=== PATIENT | female | born 1945 | race Caucasian/White ===

== ENCOUNTER 2016-11-11 22:18 | Observation (INO) | payer MEDICARE ==
[2016-11-11 23:39] LABS: Hematocrit 39 % (35-47); Hemoglobin 12.9 g/dl (12.0-16.0); Mean Corpuscular HGB Conc 33 g/dl (31-36); Mean Corpuscular Hemoglobin 30 pg (27-31); Mean Corpuscular Volume 91 fL (80-97); Mean Platelet Volume 8 um3 (7.4-10.4); Red Blood Count 4.31 10^6/ul (4.0-5.4); Red Cell Distribution Width 14 % (10.5-15); White Blood Count 4.5 10^3/ul (3.5-10.8)
[2016-11-11 23:42] LABS: Albumin 4.1 g/dL (3.2-5.2); BUN/Creatinine Ratio 17.5 (8-20); Calcium 9.4 mg/dL (8.6-10.3); EGFR African American 90.7 (>60); EGFR Non-African American 70.5 (>60); Globulin 2.7 g/dL (2-4); Potassium 3.6 mmol/L (3.5-5.0); Total Bilirubin 0.5 mg/dL (0.2-1.0); Total Protein 6.8 g/dL (6.4-8.9)
[2016-11-11 23:49] LABS: Urine Bilirubin Negative (Negative); Urine Glucose Negative (Negative); Urine Nitrite Negative (Negative)
--- NOTE | 2016-11-12 01:35 | ED ---
Kiko Bond Rebecca, scribed for Gayle Diallo MD on 11/11/16 at 2332 . Hypertension - HPI Summary HPI Summary: Pt is a 70 y/o F who presents to ED c/o diffuse right-sided numbness and tingling secondary to hypertension. Sx began suddenly at 1900 and were constant until resolution at 2300. Numbness was located on the R-side of the face and RLE. States that it "felt like something was crawling on my right leg" and that "my face felt like something cold was running down it." Sx aggravated by nothing , alleviated by spontaneous resolution. Denies unsteady gait, difficulty finding words and slurred speech. Takes Lopressor and Lipitor daily. Reports taking green vibrance and kratom since Monday (4 days ago) to promote weight loss. Reports a similar episode of R-sided facial numbness 2 years ago with a diagnosis of Lyme Disease. Confirms she has been [place] and doing yard work recently. Did not take ASA today. PMHx HTN, HLD. No PMHx DM, CVA, TIA, CAD. No FHx MT <55 y/o. - History of Current Complaint Chief Complaint: EDHypertension Stated Complaint: GENERAL ILLNESS Time Seen by Provider: 11/11/16 23:00 Hx Obtained From: Patient Onset/Duration: Started Hours Ago - 1900, Resolved - at 2300 Timing: Constant Aggravating Factor(s): Nothing Alleviating Factor(s): Other - Spontaneous resolution Associated Signs & Symptoms: Numbness - R facial, RLE, Tingling - R-facial, RLE , Other: - Denies unsteady gait, difficulty finding words or slurred speech - Allergies/Home Medications Allergies/Adverse Reactions: Allergies Allergy/AdvReac Type Severity Reaction Status Date / Time Ibuprofen Allergy Intermediate Swelling Verified 12/22/12 12:40 PMH/Surg Hx/FS Hx/Imm Hx Endocrine/Hematology History: Reports: Hx Thyroid Disease Denies: Hx Diabetes Cardiovascular History: Reports: Hx Angina - non-cardiac per pt., Hx Hypercholesterolemia, Hx Hypertension Denies: Hx Coronary Artery Disease, Hx Myocardial Infarction, Hx Valvular Heart Disease Respiratory History: Reports: Hx Pneumonia, Other Respiratory Problems/ Disorders - pleurisy Denies: Hx Asthma, Hx Chronic Obstructive Pulmonary Disease (COPD) GI History: Reports: Hx Gastroesophageal Reflux Disease, Other GI Disorders - rectiseal, 2011 Musculoskeletal History: Reports: Hx Arthritis Neurological History: Denies: Hx CVA, Hx Transient Ischemic Attacks (TIA) - Cancer History Hx Chemotherapy: No Hx Radiation Therapy: No - Surgical History Surgery Procedure, Year, and Place: lumpectomy Infectious Disease History: No Infectious Disease History: Denies: Traveled Outside the [place] in Last 30 Days - Family History Known Family History: Negative: Cardiac Disease - Social History Lives: Alone Alcohol Use: Occasionally Substance Use Type: Reports: None Smoking Status (MU): Never Smoked Tobacco Review of Systems Constitutional: Negative Eyes: Negative ENT: Negative Cardiovascular: Negative Respiratory: Negative Gastrointestinal: Negative Genitourinary: Negative Musculoskeletal: Negative Skin: Negative Neurological: Other - R facial and RLE tingling; Denies difficulty finding words or unsteady gait Positive: Numbness - R facial and RLE. Negative: Slurred Speech Psychological: Normal All Other Systems Reviewed And Are Negative: Yes Physical Exam - Summary Physical Exam Summary: General: Well appearing, no pain distress Skin: Warm, Skin Color Reflects Adequate Perfusion, Dry Eyes: EOMI, SHAYLEE ENT: Pharynx normal, TMs normal Neck: Supple, nontender Respiratory: CTA, breath sounds present, no rhonchi, no wheezes, no rales Cardiovascular: RRR, no murmur, no rub, no gallop Abdomen: Soft, nontender, Non-distended, no guarding, no rebound Bowel: Present Musculoskeletal: SERJIO, No edema Neuro: Sensory/motor intact, A&Ox3, CN intact 2-12 Psych: Affect/mood appropriate Triage Information Reviewed: Yes Vital Signs On Initial Exam: Initial Vitals Temp Pulse Resp BP Pulse Ox 98.7 F 76 18 187/89 98 11/11/16 22:25 11/11/16 22:25 11/11/16 22:25 11/11/16 22:25 11/11/16 22:25 Vital Signs Reviewed: Yes Diagnostics - Vital Signs Vital Signs Temp Pulse Resp BP Pulse Ox 11/11/16 23:00 70 20 157/92 98 11/11/16 22:58 69 98 11/11/16 22:56 173/93 11/11/16 22:52 99.2 F 70 18 173/93 96 11/11/16 22:25 98.7 F 76 18 187/89 98 - Laboratory Lab Results: Lab Results 11/11/16 11/11/16 11/11/16 Range/Units 22:58 22:59 22:59 WBC 4.5 (3.5-10.8) 10^3/ul RBC 4.31 (4.0-5.4) 10^6/ul Hgb 12.9 (12.0-16.0) g/dl Hct 39 (35-47) % MCV 91 (80-97) fL MCH 30 (27-31) pg MCHC 33 (31-36) g/dl RDW 14 (10.5-15) % Plt Count 167 (150-450) 10^3/ul MPV 8 (7.4-10.4) um3 Neut % (Auto) 49.5 (38-83) % Lymph % (Auto) 39.9 (25-47) % Towns % (Auto) 8.3 (1-9) % Eos % (Auto) 1.8 (0-6) % Baso % (Auto) 0.5 (0-2) % Absolute Neuts (auto) 2.2 (1.5-7.7) 10^3/ul Absolute Lymphs (auto) 1.8 (1.0-4.8) 10^3/ul Absolute Monos (auto) 0.4 (0-0.8) 10^3/ul Absolute Eos (auto) 0.1 (0-0.6) 10^3/ul Absolute Basos (auto) 0 (0-0.2) 10^3/ul Absolute Nucleated RBC 0 10^3/ul Nucleated RBC % 0.1 INR (Anticoag Therapy) 0.95 (0.89-1.11) Sodium (133-145) mmol/L Potassium (3.5-5.0) mmol/L Chloride (101-111) mmol/L Carbon Dioxide (22-32) mmol/L Anion Gap (2-11) mmol/L BUN (6-24) mg/dL Creatinine (0.51-0.95) mg/dL Est GFR ( Amer) (>60) Est GFR (Non-Af Amer) (>60) BUN/Creatinine Ratio (8-20) Glucose (70-100) mg/dL Lactic Acid (0.5-2.0) mmol/L Calcium (8.6-10.3) mg/dL Total Bilirubin (0.2-1.0) mg/dL AST (13-39) U/L ALT (7-52) U/L Alkaline Phosphatase (34-104) U/L Troponin I (<0.04) ng/mL Total Protein (6.4-8.9) g/dL Albumin (3.2-5.2) g/dL Globulin (2-4) g/dL Albumin/Globulin Ratio (1-3) Urine Color Straw Urine Appearance Clear Urine pH 6.0 (5-9) Ur Specific [place] 1.003 L (1.010-1.030) Urine Protein Negative (Negative) Urine Ketones Negative (Negative) Urine Blood Negative (Negative) Urine Nitrate Negative (Negative) Urine Bilirubin Negative (Negative) Urine Urobilinogen Negative (Negative) Ur Leukocyte Esterase Negative (Negative) Urine Glucose Negative (Negative) 11/11/16 11/11/16 Range/Units 22:59 22:59 WBC (3.5-10.8) 10^3/ul RBC (4.0-5.4) 10^6/ul Hgb (12.0-16.0) g/dl Hct (35-47) % MCV (80-97) fL MCH (27-31) pg MCHC (31-36) g/dl RDW (10.5-15) % Plt Count (150-450) 10^3/ul MPV (7.4-10.4) um3 Neut % (Auto) (38-83) % Lymph % (Auto) (25-47) % Towns % (Auto) (1-9) % Eos % (Auto) (0-6) % Baso % (Auto) (0-2) % Absolute Neuts (auto) (1.5-7.7) 10^3/ul Absolute Lymphs (auto) (1.0-4.8) 10^3/ul Absolute Monos (auto) (0-0.8) 10^3/ul Absolute Eos (auto) (0-0.6) 10^3/ul Absolute Basos (auto) (0-0.2) 10^3/ul Absolute Nucleated RBC 10^3/ul Nucleated RBC % INR (Anticoag Therapy) (0.89-1.11) Sodium 137 (133-145) mmol/L Potassium 3.6 (3.5-5.0) mmol/L Chloride 103 (101-111) mmol/L Carbon Dioxide 28 (22-32) mmol/L Anion Gap 6 (2-11) mmol/L BUN 14 (6-24) mg/dL Creatinine 0.80 (0.51-0.95) mg/dL Est GFR ( Amer) 90.7 (>60) Est GFR (Non-Af Amer) 70.5 (>60) BUN/Creatinine Ratio 17.5 (8-20) Glucose 113 H (70-100) mg/dL Lactic Acid 0.7 (0.5-2.0) mmol/L Calcium 9.4 (8.6-10.3) mg/dL Total Bilirubin 0.50 (0.2-1.0) mg/dL AST 22 (13-39) U/L ALT 17 (7-52) U/L Alkaline Phosphatase 67 (34-104) U/L Troponin I 0.00 (<0.04) ng/mL Total Protein 6.8 (6.4-8.9) g/dL Albumin 4.1 (3.2-5.2) g/dL Globulin 2.7 (2-4) g/dL Albumin/Globulin Ratio 1.5 (1-3) Urine Color Urine Appearance Urine pH (5-9) Ur Specific [place] (1.010-1.030) Urine Protein (Negative) Urine Ketones (Negative) Urine Blood (Negative) Urine Nitrate (Negative) Urine Bilirubin (Negative) Urine Urobilinogen (Negative) Ur Leukocyte Esterase (Negative) Urine Glucose (Negative) Result Diagrams: 11/11/16 22:59 11/11/16 22:59 Lab Statement: Any lab studies that have been ordered have been reviewed, and results considered in the medical decision making process. - CT Brain CT CT Interpretation Completed By: Radiologist - 1. Mild diffuse cerebral parenchymal volume loss without intracranial bleed, extra-axial fluid collection , mass defect, midline shift, hydrocephalus or acute territorial infarct. 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 Non-Paretic Hand: Both Correctly Best Gaze (Only Horizontal Eye Movement): Normal Visual Field Testing: No Visual Loss Facial Paresis-Pt to Smile & Close Eyes or Grimace Symmetry: Normal/Symmetrical Motor Function - Right Arm: No Drift-Holds 10 Seconds Motor Function - Left Arm: No Drift-Holds 10 Seconds Motor Function - Right Leg: No Drift-Holds 10 Seconds Motor Function - Left Leg: No Drift-Holds 10 Seconds Limb Ataxia-Must be out of Proportion to Weakness Present: Absent Sensory (Use Pinprick to Test Arms/Legs/Trunk/Face): Normal Best Language (Describe Picture, Name Items): No Aphasia Dysarthria (Read Several Words): Normal Extinction and Inattention: No Abnormality Total Score: 0 Hypertension Course/Dx - Course Course Of Treatment: 70 yo female with tia symptoms being admitted to hospitalist - Diagnoses Provider Diagnoses: TIA (transient ischemic attack) - Physician Notifications Discussed Care Of Patient With: Dr. Braswell, hospitalist, who accepts pt for admission. Time Discussed With Above Provider: 01:25 Discharge - Discharge Plan Condition: Good Disposition: ADMITTED TO [facility] Referrals: Damaso Hightower MD [Primary Care Provider] - The documentation as recorded by the Kiko polanco Rebecca accurately reflects the service I personally performed and the decisions made by me, Gayle Diallo MD.
[2016-11-12] MEDS ORDERED: Acetaminophen TAB* 325 MG PO PRN (02:34)
[2016-11-12] MEDS ORDERED: Ondansetron INJ* 2 MG/ML VIAL IV PRN (02:34)
[2016-11-12] MEDS ORDERED: CMCS: Melatonin (NF) 3 MG TAB PO PRN (02:34)
[2016-11-12] MEDS ORDERED: NS 0.9% 1000 ML* 1,000 ML IV SCH (02:45)
[2016-11-12] MEDS ORDERED: hydrALAZINE IV* 20 MG/ML VIAL IV PRN (02:56)
--- NOTE | 2016-11-12 02:56 | HP ---
H&P (Free Text) History and Physical: PCP: Karely Hightower MD Date/Time of Evaluation: 11/12/2016 CC: R-sided N/T HPI: Mrs Wallace is a 70YO female HX HTN who was at [facility] study this evening when she developed the rapid onset of abnormal sensation of the R face and R leg. It began as the feeling of water running over her R face which then evolved into N/T and spread to the RLE. This was associated with "foggy" vision , but no headache, weakness, slurred speech, or difficulty managing secretions. In total, these symptoms lasted ~3hours before gradually and spontaneously resolving. Upon my evaluation she denies any symptomotology and states she is at her baseline. She relates a similar episode 2-3 years ago in which the work up was negative. Vitals are hypertensive with systolics in the 150-180s, but otherwise stable. Lab values are essentially normal. ECG and CT brain WO are benign. PMedHx HTN HLD hypothyroidism GERD Ambulatory Orders Atorvastatin* [Lipitor 20 MG*] 20 mg PO 2100 12/22/12 Furosemide TAB* [Lasix TAB*] 40 mg PO DAILY 12/22/12 Levothyroxine TAB* [Synthroid TAB*] 50 mcg PO 0800 12/22/12 Metoprolol Tartrate TAB* [Lopressor TAB*] 100 mg PO DAILY 12/22/12 Protonix TAB (NF) 40 mg PO DAILY 11/12/16 Allergies Ibuprofen Allergy (Intermediate, Verified 12/22/12 12:40) Swelling PSurgHx tonsillectomy throat BX, benign R lumpectomy, benign L TKA SocHx: no tobacco or recreational drugs, minimal alcohol; full code status FamHx: Mother: breast CA & DM2; Father: AFIB; Brother: AFIB ROS: as above, otherwise reviewed and all were negative Constitutional: NAD, normally developed, obese white female vitals: Vital Signs Temp 37.3 C 11/11/16 22:52 Pulse 62 11/12/16 00:10 Resp 20 11/11/16 23:30 BP 172/91 11/11/16 23:30 Pulse Ox 100 11/12/16 00:10 Intake & Output 11/11/16 11/11/16 11/12/16 11:59 23:59 11:59 Weight 83.915 kg HEENM: atraumatic; sclera/conjunctiva: non-icteric/clear; hearing: clinically intact; oropharynx: clear, mucosa moist Neck: soft tissue: non-tender; thyroid: normal, no mass or tenderness Pulmonary: clear to auscultation bilaterally, good aeration, no accessory muscle use CV: RR/RR, normal S1S2, no carotid bruit, no jugular venous distention, 2+ B DP/ PT, no edema Abdominal: soft, non-distended, non-tender, no rebound/guarding/rigidity, normoactive bowel sounds, no hepatosplenomegaly or masses, no costovertebral angle tenderness Musculoskeletal: general: grossly intact; gait: stable Integumental: normal appearance and texture of exposed skin Neurological cranial nerves II: visual sarabia intact III/IV/: symmetric light reflex, EOMI/PERRLA, intact convergence & accommodation V: intact facial sensation & mastication VII: intact facial symmetry VIII: hearing clinically intact IX/X: symmetric palatal motion, no dysarthria XII: midline tongue protrusion, normal voice articulation motor: R handed LUE: 4+/5 proximally, distally, & airplane rigger strength RUE: 4+/5 proximally, distally, & airplane rigger strength LLE: 4+/5 proximally & distally RLE: 4+/5 proximally & distally coordination finger/nose: intact, slowed but symmetric heal/laughlin: intact, symmetric dysdiadochokinesia: none present sensory crude touch: intact globally pinprick: intact globally DTRs biceps: 1+ B triceps: 1+ B brachioradialis: 1+ B patellar: 1+ B Achilles: undetectable B Babinski: downgoing B Psychiatric orientation: AA&O to PPS affect: calm mood: cooperative eye contact: good content: reliable responses: timely insight: good Testing: Lab Results 11/11/16 11/11/16 11/11/16 Range/Units 22:58 22:59 22:59 WBC 4.5 (3.5-10.8) 10^3/ul RBC 4.31 (4.0-5.4) 10^6/ul Hgb 12.9 (12.0-16.0) g/dl Hct 39 (35-47) % MCV 91 (80-97) fL MCH 30 (27-31) pg MCHC 33 (31-36) g/dl RDW 14 (10.5-15) % Plt Count 167 (150-450) 10^3/ul MPV 8 (7.4-10.4) um3 Neut % (Auto) 49.5 (38-83) % Lymph % (Auto) 39.9 (25-47) % [place] % (Auto) 8.3 (1-9) % Eos % (Auto) 1.8 (0-6) % Baso % (Auto) 0.5 (0-2) % Absolute Neuts (auto) 2.2 (1.5-7.7) 10^3/ul Absolute Lymphs (auto) 1.8 (1.0-4.8) 10^3/ul Absolute Monos (auto) 0.4 (0-0.8) 10^3/ul Absolute Eos (auto) 0.1 (0-0.6) 10^3/ul Absolute Basos (auto) 0 (0-0.2) 10^3/ul Absolute Nucleated RBC 0 10^3/ul Nucleated RBC % 0.1 INR (Anticoag Therapy) 0.95 (0.89-1.11) Sodium (133-145) mmol/L Potassium (3.5-5.0) mmol/L Chloride (101-111) mmol/L Carbon Dioxide (22-32) mmol/L Anion Gap (2-11) mmol/L BUN (6-24) mg/dL Creatinine (0.51-0.95) mg/dL Est GFR ( Amer) (>60) Est GFR (Non-Af Amer) (>60) BUN/Creatinine Ratio (8-20) Glucose (70-100) mg/dL Lactic Acid (0.5-2.0) mmol/L Calcium (8.6-10.3) mg/dL Total Bilirubin (0.2-1.0) mg/dL AST (13-39) U/L ALT (7-52) U/L Alkaline Phosphatase (34-104) U/L Troponin I (<0.04) ng/mL Total Protein (6.4-8.9) g/dL Albumin (3.2-5.2) g/dL Globulin (2-4) g/dL Albumin/Globulin Ratio (1-3) Urine Color Straw Urine Appearance Clear Urine pH 6.0 (5-9) Ur Specific [place] 1.003 L (1.010-1.030) Urine Protein Negative (Negative) Urine Ketones Negative (Negative) Urine Blood Negative (Negative) Urine Nitrate Negative (Negative) Urine Bilirubin Negative (Negative) Urine Urobilinogen Negative (Negative) Ur Leukocyte Esterase Negative (Negative) Urine Glucose Negative (Negative) 11/11/16 11/11/16 Range/Units 22:59 22:59 WBC (3.5-10.8) 10^3/ul RBC (4.0-5.4) 10^6/ul Hgb (12.0-16.0) g/dl Hct (35-47) % MCV (80-97) fL MCH (27-31) pg MCHC (31-36) g/dl RDW (10.5-15) % Plt Count (150-450) 10^3/ul MPV (7.4-10.4) um3 Neut % (Auto) (38-83) % Lymph % (Auto) (25-47) % [place] % (Auto) (1-9) % Eos % (Auto) (0-6) % Baso % (Auto) (0-2) % Absolute Neuts (auto) (1.5-7.7) 10^3/ul Absolute Lymphs (auto) (1.0-4.8) 10^3/ul Absolute Monos (auto) (0-0.8) 10^3/ul Absolute Eos (auto) (0-0.6) 10^3/ul Absolute Basos (auto) (0-0.2) 10^3/ul Absolute Nucleated RBC 10^3/ul Nucleated RBC % INR (Anticoag Therapy) (0.89-1.11) Sodium 137 (133-145) mmol/L Potassium 3.6 (3.5-5.0) mmol/L Chloride 103 (101-111) mmol/L Carbon Dioxide 28 (22-32) mmol/L Anion Gap 6 (2-11) mmol/L BUN 14 (6-24) mg/dL Creatinine 0.80 (0.51-0.95) mg/dL Est GFR ( Amer) 90.7 (>60) Est GFR (Non-Af Amer) 70.5 (>60) BUN/Creatinine Ratio 17.5 (8-20) Glucose 113 H (70-100) mg/dL Lactic Acid 0.7 (0.5-2.0) mmol/L Calcium 9.4 (8.6-10.3) mg/dL Total Bilirubin 0.50 (0.2-1.0) mg/dL AST 22 (13-39) U/L ALT 17 (7-52) U/L Alkaline Phosphatase 67 (34-104) U/L Troponin I 0.00 (<0.04) ng/mL Total Protein 6.8 (6.4-8.9) g/dL Albumin 4.1 (3.2-5.2) g/dL Globulin 2.7 (2-4) g/dL Albumin/Globulin Ratio 1.5 (1-3) Urine Color Urine Appearance Urine pH (5-9) Ur Specific [place] (1.010-1.030) Urine Protein (Negative) Urine Ketones (Negative) Urine Blood (Negative) Urine Nitrate (Negative) Urine Bilirubin (Negative) Urine Urobilinogen (Negative) Ur Leukocyte Esterase (Negative) Urine Glucose (Negative) ECG, personally reviewed: NSR rate 65, no ischemia CT brain WO, personally reviewed: FINDINGS: 1. Mild diffuse cerebral parenchymal volume loss without intracranial bleed, extra-axial fluid collection , mass effect, midline shift, hydrcephalus or acute territorial infarct. Impression: 70F presenting with symptoms consistent with TIA DIAGNOSIS & PLAN Primary TIA : telemetry : supplemental oxygen : neurochecks : obtain ECHO : obtain MRI brain WO : consider neurology consult in AM : supportive care Secondary HTN : continue metoprolol : PRN hydralazine IV w/ parameter HLD : continue atorvastatin hypothyroidism : continue levothyroxine GERD : PO omeprazole Admission Rational: CDU observation for TIA work up DVTp: heparin SQ Code Status: full HCP: sonOzzy
[2016-11-12] MEDS: Aspirin TAB* 325 MG PO SCH ×2 (03:41→07:59)
[2016-11-12] MEDS ORDERED: Omeprazole CAP* 20 MG PO SCH (06:00)
[2016-11-12] MEDS ORDERED: Levothyroxine TAB* 50 MCG TAB PO SCH (06:00)
--- NOTE | 2016-11-12 08:21 | RAD ---
Indication: Resolving LEFT facial numbness. High blood pressure. Comparison: December 22, 2012 CT Technique: Noncontrast CT vertex of skull through foramen magnum. Report: The sulci, ventricles, and basal cisterns are normal for age. Conde matter white matter differentiation is preserved without evidence for edema. No intra or extra axial hemorrhage, mass, or fluid collection detected. Unremarkable orbital contents. Unremarkable calvarium and skull base. Unremarkable scalp. The visualized paranasal sinuses and mastoid air spaces are clear. IMPRESSION: Negative unenhanced head CT.
[2016-11-12] MEDS ORDERED: Furosemide TAB* 20 MG PO SCH (09:00)
[2016-11-12] MEDS ORDERED: Docusate CAP* 100 MG PO SCH (09:00)
[2016-11-12] MEDS ORDERED: Metoprolol Tartrate TAB* 50 mg PO SCH (09:00)
[2016-11-12] MEDS ORDERED: Iohexol 350* (CONTRAST) 500 ML MDV IV ONE (12:06)
[2016-11-12 13:04] VITALS: BP 128/69
--- NOTE | 2016-11-12 14:04 | RAD ---
INDICATION: TIA. COMPARISON: December 22, 2012 CT angiogram. TECHNIQUE: Multidetector CT images were obtained from the aortic arch to the vertex of the head with 80 mL Omnipaque 350 IV contrast. Arterial phase of enhancement. Multiplanar reformation including maximum intensity projection. 3-D arterial volume rendering. Stenosis estimations based on denominator of distal arterial diameter. NECK ANGIOGRAM REPORT: Normal configuration of the branch vessels at the aortic arch. Negative for ostial stenosis. Tortuous RIGHT common carotid artery. Negative for atherosclerotic plaque at the RIGHT carotid bifurcation or internal carotid artery. Mild calcific plaque at the LEFT carotid bifurcation without resulting carotid stenosis. Tortuous LEFT internal carotid artery. Patent bilateral vertebral arteries. The RIGHT vertebral artery is diminutive in size after the origin of the RIGHT posterior inferior cerebellar artery. The RIGHT vertebral artery makes only a small contribution to the basilar artery. Unremarkable LEFT vertebral artery. Negative for arterial dissection. NECK ANGIOGRAM IMPRESSION: Negative for significant stenosis of the carotid or vertebral arteries. HEAD ANGIOGRAM REPORT: Unremarkable intracranial internal carotid arteries as well as the M1 and M2 segments of the middle cerebral arteries and the A1 and A2 segments of the anterior cerebral arteries. No definitive anterior communicating artery evident. Relative diminutive basilar artery. Unremarkable cerebellar artery origins. Patent posterior cerebral arteries with the RIGHT supplied primarily by the anterior circulation with a dominant RIGHT posterior communicating artery and the LEFT supplied primarily by the relative diminutive size basilar artery with normal variant hypoplastic LEFT posterior communicating artery. Negative for central intracranial aneurysms. HEAD ANGIOGRAM IMPRESSION: Negative for intracranial large vessel arterial stenosis or occlusion. CPT II: CPT II Codes: 3100F
[2016-11-12] MEDS ORDERED: Atorvastatin* 20 MG TAB PO SCH (21:00)
[2016-11-13] MEDS ORDERED: Heparin VIAL(*) 5000 UNITS/ML VIAL (FIVE THOUSAND) SUBCUT SCH (06:00)
--- NOTE | 2016-11-13 10:27 | DS ---
DISCHARGE SUMMARY: DATE OF ADMISSION: 11/12/16 DATE OF DISCHARGE: 11/12/16 ADMISSION DIAGNOSES: 1. Possible transient ischemic attack. 2. Hypertension. 3. Hyperlipidemia. 4. Hypothyroidism. 5. Gastroesophageal reflux disease. DISCHARGE DIAGNOSES: 1. Possible transient ischemic attack. 2. Hypertension. 3. Hyperlipidemia. 4. Hypothyroidism. 5. Gastroesophageal reflux disease. HOSPITAL COURSE: The patient is a 68-year-old woman who developed rapid outset of a feeling like there was cold water on her right face while sitting in a Bible study class. It also seemed to last until she got to the hospital then resolved on its own. She had no headache. According to the ER note, she probably had foggy vision, but the patient denied anything like that to me. The patient had a CT scan, which was unremarkable. The patient had a CTA of her head, which was unremarkable as well. It was felt that patient could benefit from an MRI, which will be performed as an outpatient. The patient will follow up with her PCP for same. The patient was stable to discharge to home on 11/12/16. PHYSICAL EXAMINATION: On date of discharge, pleasant woman, lying in bed in no acute distress. Vital Signs: Temperature 97.5 degrees, heart rate 62 beats per minute, respiratory rate 18 breaths per minute, pulse ox 92%, and blood pressure 120/69. HEENT: Normocephalic, atraumatic. Pupils equal, round, reactive to light. Moist mucous membranes. Neck: Supple. No JVD, bruits, palpable thyroid, or lymphadenopathy. Chest: Clear to auscultation and percussion bilaterally. Cardiovascular Exam: S1 and S2 appreciated. Abdominal Exam: Positive bowel sounds in all 4 quadrants. Soft, nontender and nondistended. No hepatosplenomegaly. Extremities: No cyanosis, clubbing or edema. +2 pulse bilaterally. Neuro: Alert and oriented x3. Moves all extremities. Skin: No rashes or abnormalities. STUDIES DONE WHILE IN THE HOSPITAL: Brain CT on 11/11/16, impression: Negative. Head CTA on 11/12/16, impression: Negative for intracranial large vessel stenosis or occlusion, negative for significant stenosis of the carotid vertebral arteries. DISCHARGE MEDICATIONS: 1. Protonix 20 mg daily. 2. Lipitor 20 mg daily. 3. Metoprolol tartrate 100 mg daily. 4. Levothyroxine 50 mcg daily. 5. Furosemide 40 mg daily. 6. Aspirin 81 mg daily was started. DISCHARGE PLAN: The patient will be discharged home. She is to follow up with her PCP within a week. She is to have an MRI done of her brain. The patient is to return to the ED if develops anymore worrisome symptoms. TIME SPENT: Over 40 minutes was spent on this discharge; more than 25 minutes of which was spent in direct [id number] contact with the patient, evaluation, physical exam, counseling, and coordination of care. CC: Damaso Hightower MD * [id number]/[facility] #: [id number] MTDD
== END 2016-11-12 15:55 | disposition home or self-care (01) ==
LOC: ED 22:18 → MEDTELE 11-12 03:31
PROVIDERS: ADMIT Hospitalist; ATTEND Internal Medicine
DX: R20.2 Paresthesia of skin (principal); I10 Essential (primary) hypertension; E78.5 Hyperlipidemia, unspecified; E03.9 Hypothyroidism, unspecified; I51.7 Cardiomegaly; K21.9 Gastro-esophageal reflux disease without esophagitis; Z79.899 Other long term (current) drug therapy; Z79.82 Long term (current) use of aspirin
CPT/HCPCS: 36415; 70450; 70496; 70498; 80053; 81003; 83605; 84484; 85025; 85610; 93005; 99284; A9270-GY; G0378; Q9967

== ENCOUNTER 2017-09-13 08:25 | Day surgery (SDC) | payer MEDICARE ==
[~2017-09-13 08:25] MED LIST: Acetaminophen TAB* 325 MG PO PRN; Buffered Lidocaine 0.9% SYRIN* 5 ML/SYR SYRINGE INTRADERM ONE; Cyclopentolate 1% OPTH.SOL* 2 ML BTL ONE; Ketorolac 0.5% OPHTH (NF) 0.5 % 5 ML BTL ONE; Lidocaine 1% MPF* 2 ML VIAL ONE; Lidocaine 2% EPI 1:200000 MPF* 20 ML VIAL ONE; Midazolam* 1 MG/ML 2 ML VIAL (2 MG) ONE; Neomycin/Polymy/Dex OPTH.SUSP* MAXITROL 0.1% 5 ML ONE; Phenylephrine 2.5% OPTH.SOL* 2 ML BTL ONE; Povidone Iodine 5% OPTH* 30 ML BTL ONE; Proparacaine 0.5% OPHTH.SOL* 15 ML BTL ONE; acetaZOLAMIDE TAB* 250 MG ONE
[2017-09-13 11:17] VITALS: BP 136/76
--- NOTE | 2017-09-13 12:16 | OP ---
DATE OF OPERATION: 09/13/2017. DATE OF : 1945. SURGEON: Damaso Baker M.D. PREOPERATIVE DIAGNOSIS: Cataract right eye. POSTOPERATIVE DIAGNOSIS: Cataract right eye. OPERATIVE PROCEDURE: Extracapsular cataract extraction with intraocular lens implant right eye. PROCEDURE: The patient was brought to the operating room after being given 1/2% Alcaine with epineph rine drops in the preoperative area. The eye was prepped and draped in the usual sterile fashion. S terile drape and eyelid speculum were placed. Again, topical 1/2% Alcaine with epinephrine was given . A paracentesis incision was made at the 9 o'clock position with the No.75 blade. Clear cornea inc ision 2.2 x 2.2-mm was created at the 12 o'clock position starting at the anterior limbus using the 2 .2-mm keratome. The anterior chamber was irrigated with 0.4 mL of 1% non-preservative intracameral l idocaine and filled with DisCoVisc. A capsulorrhexis was completed using the cystotome and the Utrat a forceps. Hydrodissection was performed with balanced salt solution. The lens nucleus was removed w ith the Phacoemulsification handpiece without incident. Cortex was removed with the irrigation-aspir ation handpiece. The capsular bag was re-inflated using DisCoVisc and an SN60WF 20.5 implant was ins erted with the shooter. The irrigation-aspiration handpiece was used to remove all residual DisCoVis c. The eye was refilled with balanced salt solution and the wound checked and found to be watertight . Topical Maxitrol drops were given. [id number]/[facility] #: [id number]
== END 2017-09-13 11:09 | disposition home or self-care (01) ==
LOC: OREAST 08:25
PROVIDERS: ATTEND Specialist
DX: H25.811 Combined forms of age-related cataract, right eye (principal); H40.1421 Capsular glaucoma with pseudoexfoliation of lens, left eye, mild stage; I10 Essential (primary) hypertension; E78.00 Pure hypercholesterolemia, unspecified; E03.9 Hypothyroidism, unspecified; K21.9 Gastro-esophageal reflux disease without esophagitis
CPT/HCPCS: A9270-GY; J2250; V2632

== ENCOUNTER 2017-09-20 08:21 | Day surgery (SDC) | payer MEDICARE ==
[~2017-09-20 08:21] MED LIST changes: -Cyclopentolate 1% OPTH.SOL* 2 ML BTL ONE; -Ketorolac 0.5% OPHTH (NF) 0.5 % 5 ML BTL ONE; -Lidocaine 1% MPF* 2 ML VIAL ONE; -Lidocaine 2% EPI 1:200000 MPF* 20 ML VIAL ONE; -Midazolam* 1 MG/ML 2 ML VIAL (2 MG) ONE; -Neomycin/Polymy/Dex OPTH.SUSP* MAXITROL 0.1% 5 ML ONE; -Phenylephrine 2.5% OPTH.SOL* 2 ML BTL ONE; -Povidone Iodine 5% OPTH* 30 ML BTL ONE; -Proparacaine 0.5% OPHTH.SOL* 15 ML BTL ONE; -acetaZOLAMIDE TAB* 250 MG ONE
[2017-09-20] MEDS ORDERED: Midazolam* 1 MG/ML 2 ML VIAL (2 MG) ONE (10:07)
[2017-09-20 11:11] VITALS: BP 147/78
[2017-09-20] MEDS ORDERED: Cyclopentolate 1% OPTH.SOL* 2 ML BTL ONE (12:10)
[2017-09-20] MEDS ORDERED: Lidocaine 1% MPF* 2 ML VIAL ONE (12:10)
[2017-09-20] MEDS ORDERED: Ketorolac 0.5% OPHTH (NF) 0.5 % 5 ML BTL ONE (12:10)
[2017-09-20] MEDS ORDERED: Proparacaine 0.5% OPHTH.SOL* 15 ML BTL ONE (12:10)
[2017-09-20] MEDS ORDERED: Phenylephrine 2.5% OPTH.SOL* 2 ML BTL ONE (12:10)
[2017-09-20] MEDS ORDERED: Lidocaine 2% EPI 1:200000 MPF* 20 ML VIAL ONE (12:10)
[2017-09-20] MEDS ORDERED: Neomycin/Polymy/Dex OPTH.SUSP* MAXITROL 0.1% 5 ML ONE (12:10)
[2017-09-20] MEDS ORDERED: Povidone Iodine 5% OPTH* 30 ML BTL ONE (12:10)
[2017-09-20] MEDS ORDERED: acetaZOLAMIDE TAB* 250 MG ONE (12:10)
--- NOTE | 2017-09-20 21:53 | OP ---
DATE OF OPERATION: 09/20/17 - [facility] DATE OF : [birth year] SURGEON: Damaso Baker MD PREOPERATIVE DIAGNOSIS: Cataract, left eye. POSTOPERATIVE DIAGNOSIS: Cataract, left eye. OPERATIVE PROCEDURE: Extracapsular cataract extraction with intraocular lens implant and CTR, left eye. DESCRIPTION OF PROCEDURE: The patient was brought to the operating room after being given 1/2% Alcaine with epinephrine drops in the preoperative area. The eye was prepped and draped in the usual sterile fashion. Sterile drape and eyelid speculum were placed. Again, topical 1/2% Alcaine with epinephrine was given. A paracentesis incision was made at the 3 o'clock position with the No.75 blade. Clear cornea incision 2.2 x 2.2-mm was created at the 6 o'clock position starting at the anterior limbus using the 2.2-mm keratome. The anterior chamber was irrigated with 0.4 mL of 1% non-preservative intracameral lidocaine and filled with DisCoVisc. A capsulorrhexis was completed using the cystotome and the Utrata forceps. Hydrodissection was performed with balanced salt solution. The lens nucleus was removed with the Phacoemulsification handpiece without incident. Cortex was removed with the irrigation-aspiration handpiece. The capsular bag was re-inflated using DisCoVisc and an [id number] 20 implant was inserted with the shooter followed by a capsular tension ring [id number] inserted with the shooter. Pupil was very small, so a Malyugin ring was placed prior to capsulorrhexis and remove the extra insertion of the capsular tension ring. The irrigation-aspiration handpiece was used to remove all residual DisCoVisc. The eye was refilled with balanced salt solution and the wound checked and found to be watertight. Topical Maxitrol drops were given. Indication for complex cataract surgery: Pseudoexfoliation requiring capsular tension ring and also iris abnormalities requiring Malyugin pupil dilation device. [id number]/[facility] #: [id number] MTDD
== END 2017-09-20 11:04 | disposition home or self-care (01) ==
LOC: OREAST 08:21
PROVIDERS: ATTEND Specialist
DX: H25.812 Combined forms of age-related cataract, left eye (principal); H40.1421 Capsular glaucoma with pseudoexfoliation of lens, left eye, mild stage; I10 Essential (primary) hypertension; E03.9 Hypothyroidism, unspecified; E78.5 Hyperlipidemia, unspecified
CPT/HCPCS: A9270-GY; J2250; V2632

== ENCOUNTER 2018-10-12 12:53 | Observation (INO) | payer MEDICARE ==
--- OUTSIDE RECORDS SUMMARY | 2018-10-12 13:32 | XMS REPORT | Continuity of Care Document ---
:1945 External Reference #:[id number] Author Name Sandra Interiano O.D. Address [address] [place] [address] Care Team Providers Name Role Phone Damaso Hightower M.D. Primary Care Physician Unavailable Payers Date Identification Numbers Payment Provider Subscriber Policy Number: [id number] [facility] [employer] Number: [id number] [address] [address] PayID: [id number] MikalMARIA DOLORES valenzuela [id number] Advance Directives Description No Information Available Problems Active Problems Provider Date Essential hypertension Onset: Hypercholesterolemia Onset: Hypothyroidism Onset: Reflux Onset: Pseudoexfoliation glaucoma Sandra Interiano O.D. Onset: 2014 Nuclear senile cataract Sandra Interiano O.D. Onset: 2014 Blepharitis Sandra Interiano O.D. Onset: 2014 Allergic contact dermatitis of eyelid Sandra Interiano O.D. Onset: 2014 Mild / Early Stage Glaucoma Sandra Interiano O.D. 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 Onset: 2014 Combined form of senile cataract Sandra Interiano O.D. Onset: 06/10/2015 Pseudoexfoliation glaucoma Sandra Interiano O.D. 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 Onset: risk, right eye Visual disturbance Sandra Interiano O.D. Onset: 12/14/2016 Senile ectropion Sandra Interiano O.D. Onset: 06/21/2017 Presence of intraocular lens Damaso Baker M.D. Onset: 09/21/2017 Tear film insufficiency Sandra Interiano O.D. Onset: 10/06/2017 Inactive Problems Lyme disease Onset: Inactive: 06/21/2017 Note: spring Family History Date Family Member(s) Observation Comments Father No Current Problems Mother Cataract Social History Type Date Description Comments Sex Unknown Marital Status Single Work Status Retired ETOH Use Occasionally consumes alcohol Tobacco Use Start: Unknown Patient has never smoked Smoking Status Reviewed: 10/10/18 Patient has never smoked Allergies, Adverse Reactions, Alerts Active Allergies Reaction Severity Comments Date Ibuprofen 2014 Medications Active Medications SIG Qnty Indications Ordering Provider Date Travatan Z 1 drop left eye 90Days Sandra Jay 12/02/2014 0.004% every night Jackie Interiano Solution Artificial Tears as needed Unknown 0.1-0.3% Solution Vitamin E Unknown 400Unit Capsules Doxycycline Damaso Hightower Monohydrate M.DLeland 100mg Capsules Potassium daily Unknown 595mg L-Lysine daily Unknown 1000mg Capsules Magnesium & Vitamin Unknown D3/Turmeric [phone]-Unit-m g Capsules Vitamin C Unknown W/Vitamin E [id number] Capsules Calcium + D + K 2 daily Unknown [phone] Tablets Synthroid daily Unknown 50mcg Tablets Lopressor daily Unknown 100mg Tablets Lipitor daily Unknown 20mg Tablets Protonix daily Unknown 40mg Packet Lasix daily as needed Unknown 40mg Tablets History Medications Ketorolac Tromethamine Instill one 10ml Damaso Jay 09/08/2017 - drop into right Kana Baker 10/05/2017 0.5% Solution eye two times daily, one drop into left eye three times daily Ciprofloxacin HCL Instill one 10units Damaso Jay 09/08/2017 - 0.3% drop into left Arleo, M.D. 10/05/2017 Solution eye three times daily Prednisolone Acetate Instill one 15units Damaso Jay 09/08/2017 - 1% drop into right Arleo, M.D. 10/05/2017 Suspension eye two times daily, one drop into left eye three times daily Tobradex apply to all 3.500gm 373.00 Sandra Jay 2014 - 0.3-0.1% lids at bedtime Jackie Interiano 06/09/2015 Ointment for 2 weeks Potassimin Unknown - 75mg Tablets 12/09/2015 Immunizations Description No Information Available Vital Signs Description No Information Available Results Description No Information Available Procedures Date Code Description Status 04/11/2018 03709 Visual Field Exam Extended Completed 04/11/2018 91674 Est Patient Intermediate Exam Completed 09/20/2017 79900 Cataract Surgery Complex Completed 09/13/2017 21768 Extracapsular Cataract Extraction W/Intraocular Lens Completed 09/08/2017 51634 Ophthalmic Biometry Completed 06/23/2017 89231 Est Patient Intermediate Exam Completed 06/21/2017 49299 Scanning Computerized Ophthalmic Diagnostic Imag Posterior Completed Seg On 06/21/2017 92094 Est Patient Comprehensive Exam Completed 12/14/2016 26364 Visual Field Exam Extended Completed 12/14/2016 64883 Gonioscopy Completed 12/14/2016 26072 Est Patient Intermediate Exam Completed 06/15/2016 24336 Est Patient Comprehensive Exam Completed 06/15/2016 82395 Scanning Computerized Ophthalmic Diagnostic Imag Posterior Completed Seg On 12/09/2015 30692 Visual Field Exam Extended Completed 12/09/2015 59354 Est Patient Intermediate Exam Completed 06/10/2015 71918 Scanning Computerized Ophthalmic Diagnostic Imag Posterior Completed Seg On 06/10/2015 59887 Est Patient Comprehensive Exam Completed 2014 10401 Visual Field Exam Extended Completed 2014 35548 Est Patient Intermediate Exam Completed 06/04/2014 22648 Scanning Computerized Ophthalmic Diagnostic Imag Posterior Completed Seg On 06/04/2014 88244 Est Patient Comprehensive Exam Completed 11/20/2013 87424 Est Patient Comprehensive Exam Completed 11/20/2013 96664 Visual Field Exam Extended Completed 11/20/2013 15856 Scanning Computerized Ophthalmic Diagnostic Imag Posterior Completed Seg On 11/21/2012 50594 Scanning Computerized Ophthalmic Diagnostic Imag Posterior Completed Seg On 11/21/2012 41507 Visual Field Exam Extended Completed 11/21/2012 30637 Est Patient Comprehensive Exam Completed 11/30/2011 19237 Scanning Computerized Ophthalmic Diagnostic Imag Posterior Completed Seg On 11/30/2011 64912 Visual Field Exam Extended Completed 11/30/2011 30744 Est Patient Comprehensive Exam Completed 06/03/2011 93357 Est Patient Intermediate Exam Completed 12/27/2010 44517 Est Patient Intermediate Exam Completed 12/27/2010 96464 Visual Field Exam Extended Completed 12/27/2010 01272 Scanning Computerized Ophthalmic Diagnostic Imag Posterior Completed Seg On 01/04/2010 82876 Scanning Laser W/Interp And Report Completed 01/04/2010 01908 Visual Field Exam Extended Completed 01/04/2010 66503 Gonioscopy Completed 01/04/2010 05331 Est Patient Comprehensive Exam Completed 01/04/2010 92812 Pachymetry Completed 09/03/2007 40396 Scanning Laser W/Interp And Report Completed 09/03/2007 48599 Visual Field Exam Extended Completed 08/20/2007 53756 New Patient Comprehensive Exam Completed Encounters Type Date Location Provider Dx Diagnosis Office Visit 09/08/2017 Damaso [facility], H25.811 Combined forms of 1:00p , francisco javier M.Haile. 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 Glaucoma pc Office Visit 04/16/2010 Damaso Jay 365.11 Primary Open Angle 9:10a MD Baker Stockwin, O.D. Glaucoma pc Office Visit 02/17/2010 Damaso Jay 365.52 Glaucoma 3:00p MD Baker Stockwin, O.D. Pseudoexfoliation pc Office Visit 02/17/2010 Damaso Jay 365.52 Glaucoma 1:10p MD Baker Stockwin, O.D. Pseudoexfoliation pc Office Visit 02/17/2010 Damaso Jay 365.52 Glaucoma 10:30a MD Baker Stockwin, O.D. Pseudoexfoliation pc Office Visit 02/17/2010 Damaso Jay 365.52 Glaucoma 8:30a MD Baker Stockwin, O.D. Pseudoexfoliation pc Office Visit 08/22/2007 Damaso Jay 053.29 Herpes Zoster Other 1:30p MD Baker Stockwin, O.D. 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 However, if you have any changes in your vision or new symptoms, there are certain situations that require us to dilate your eyes. If Dr. Interiano requests any additional testing, that may require extra time. If you have any questions before your next appointment, please call our office at .Z96.1 Presence of intraocular lensH04.123 Dry eye syndrome of bilateral lacrimal glandsComments:use a hot compress for 5-10 minutes as needed for the dry eyes
[2018-10-12 14:52] LABS: ABS Basophils 0 10^3/ul (0-0.2); ABS Eosinophils 0.1 10^3/ul (0-0.6); ABS Monocytes 0.3 10^3/ul (0-0.8); ABS Neutrophils 3.3 10^3/ul (1.5-7.7); ABS Nucleated RBC 0 10^3/ul; Eosinophil % 1.1 %; Hematocrit 42 % (33-41); Hemoglobin 13.7 g/dL (12.0-16.0); Lymphocyte % 22.1 %; Mean Corpuscular HGB Conc 33 g/dL (31-36); Mean Corpuscular Hemoglobin 30 pg (27-31); Mean Corpuscular Volume 91 fL (80-97); Nucleated Red Blood Cells % 0; Platelet Count 203 10^3/uL (150-450); Red Blood Count 4.57 10^6 /uL (3.70-4.87); Red Cell Distribution Width 14 % (10.5-15); White Blood Count 4.7 10^3/uL (3.5-10.8)
[2018-10-12 15:12] LABS: Albumin 4.1 g/dL (3.2-5.2); Albumin/Globulin Ratio 1.6 (1-3); BUN/Creatinine Ratio 24.6 (8-20); Calcium 9.3 mg/dL (8.6-10.3); EGFR African American 100.6 (>60); EGFR Non-African American 83.2 (>60); Globulin 2.5 g/dL (2-4); Potassium 4.1 mmol/L (3.5-5.0); Total Bilirubin 0.3 mg/dL (0.2-1.0); Total Protein 6.6 g/dL (6.4-8.9)
[2018-10-12] MEDS ORDERED: Nitroglycerin TAB 0.4 MG* 0.4 MG TAB SL ONE (15:41)
[2018-10-12] MEDS ORDERED: Aspirin 81 mg CHEW TAB* 81 MG TAB.CHEW PO ONE (15:41)
--- NOTE | 2018-10-12 16:11 | ED ---
HPI Chest Pain - HPI Summary HPI Summary: Pt is a 72 y/o F presenting to the ED with a chief complaint of chest pain onset about two days ago that comes and goes. She reports weakness, ache in L arm that feels like a pinched nerve, and feeling off balance. The sx lasted a short time but she felt very unwell afterwards, and she reports a recent stressor of having to put her cat down. Her sx today resolved after about one hour. Pt denies any fever, chills, erythema of eyes, sore throat, CP, SOB, cough , abdominal pain, N/V, dysuria, hematuria, edema, or rash. - History of Current Complaint Chief Complaint: EDChestPainROMI Time Seen by Provider: 10/12/18 15:39 Hx Obtained From: Patient Onset/Duration: Started Days Ago, Resolved Timing: Intermittent, Lasting Hours Initial Severity: Moderate Current Severity: None Pain Intensity: 4 Pain Scale Used: 0-10 Numeric Character: Dull/Aching, Other: - "like a pinched nerve" Aggravating Factor(s): Nothing Alleviating Factor(s): Nothing Associated Signs and Symptoms: Positive: Dizziness - "off balance". Negative: Chest Pain, Shortness of Breath, Swelling, Fever, Chills, Cough, Abdominal Pain - Additional Pertinent History Primary Care Physician: [id number] - Allergy/Home Medications Allergies/Adverse Reactions: Allergies Allergy/AdvReac Type Severity Reaction Status Date / Time ibuprofen Allergy Severe SEVERE Verified 10/12/18 12:55 SWELLING Home Medications: Home Medications Ascorbic Acid TAB* [Vitamin C TAB*] 250 mg PO DAILY 10/12/18 [History Confirmed 10/12/18] Calcium Carbonate/Vitamin D3 [Calcium 600 + Vit D Tablet] 1 tab PO TID 10/12/18 [History Confirmed 10/12/18] Furosemide TAB* [Lasix TAB*] 20 mg PO QAM 10/12/18 [History Confirmed 10/12/18] Levothyroxine TAB* [Synthroid 25 MCG TAB*] 25 mcg PO DAILY 10/12/18 [History Confirmed 10/12/18] Magnesium Oxide [Magnesium] 250 mg PO DAILY 10/12/18 [History Confirmed 10/12/18 ] Vitamin E CAP* 200 unit PO DAILY 10/12/18 [History Confirmed 10/12/18] PMH/Surg Hx/FS Hx/Imm Hx Previously Healthy: No Endocrine/Hematology History: Reports: Hx Thyroid Disease Denies: Hx Bone Marrow Disease, Hx Diabetes, Hx Sickle Cell Disease, Hx Anemia Cardiovascular History: Reports: Hx Angina - non-cardiac per pt., Hx Hypercholesterolemia, Hx Hypertension Denies: Hx Coronary Artery Disease, Hx Myocardial Infarction, Hx Pacemaker/ ICD, Hx Valvular Heart Disease Respiratory History: Reports: Hx Pneumonia, Other Respiratory Problems/ Disorders - pleurisy Denies: Hx Asthma, Hx Chronic Obstructive Pulmonary Disease (COPD) GI History: Reports: Hx Gastroesophageal Reflux Disease, Other GI Disorders - rectiseal, 2010 History: Reports: Hx Kidney Stones - 2006 Denies: Hx Renal Disease Musculoskeletal History: Reports: Hx Arthritis, Other Musculoskeletal History - LEFT KNEE DISCOMFORT Sensory History: Reports: Hx Cataracts, Hx Contacts or Glasses, Hx Glaucoma Denies: Hx Hearing Aid Opthamlomology History: Reports: Hx Cataracts, Hx Contacts or Glasses, Hx Glaucoma Neurological History: Reports: Other Neuro Impairments/Disorders - BILAT CTS Denies: Hx CVA, Hx Transient Ischemic Attacks (TIA) Psychiatric History: Denies: Hx Panic Disorder - Cancer History Hx Chemotherapy: No Hx Radiation Therapy: No - Surgical History Surgery Procedure, Year, and Place: lumpectomy RIGHT BREAST, L KNEE REPLACEMENT. RECTOCELE WITH MESH. TONSILS. TUBAL LIGATION. POLYP REMOVED FROM THROAT-KIDNEY STONES Hx Anesthesia Reactions: Yes - SEVERE HYPOTENSION POST D&C Infectious Disease History: No Infectious Disease History: Denies: Traveled Outside the [place] in Last 30 Days - Family History Known Family History: Negative: Cardiac Disease - Social History Alcohol Use: Rare Hx Substance Use: No Substance Use Type: Reports: None Hx Tobacco Use: No Smoking Status (MU): Never Smoked Tobacco Have You Smoked in the Last Year: No Review of Systems Negative: Fever, Chills Negative: Erythema Negative: Sore Throat Positive: Chest Pain Negative: Shortness Of Breath, Cough Negative: Abdominal Pain, Vomiting, Nausea Negative: dysuria, hematuria Negative: Myalgia, Edema Negative: Rash Neurological: Other - "off balance" Positive: Weakness All Other Systems Reviewed And Are Negative: Yes Physical Exam - Summary Physical Exam Summary: Constitutional: Well-developed, Well-nourished, Alert. (-) Distressed Skin: Warm, Dry HENT: Normocephalic; Atraumatic Eyes: Conjunctiva normal Neck: Musculoskeletal ROM normal neck. (-) JVD, (-) Stridor, (-) Tracheal deviation Cardio: Rhythm regular, rate normal, Heart sounds normal; Intact distal pulses; The pedal pulses are 2+ and symmetric. Radial pulses are 2+ and symmetric. (-) Murmur Pulmonary/Chest wall: Effort normal. (-) Respiratory distress, (-) Wheezes, (-) Rales Abd: Soft, (-) tenderness, (-) Distension, (-) Guarding, (-) Rebound Musculoskeletal: (-) Edema Lymph: (-) Cervical adenopathy Neuro: Alert, Oriented x3 Psych: Mood and affect Normal Triage Information Reviewed: Yes Vital Signs On Initial Exam: Initial Vitals Temp Pulse Resp BP Pulse Ox 98.1 F 80 20 178/93 98 10/12/18 12:57 10/12/18 12:57 10/12/18 12:57 10/12/18 12:57 10/12/18 12:57 Vital Signs Reviewed: Yes Diagnostics - Vital Signs Vital Signs Temp Pulse Resp BP Pulse Ox 10/12/18 12:57 98.1 F 80 20 178/93 98 - Laboratory Lab Results: Lab Results 10/12/18 10/12/18 10/12/18 Range/Units 14:43 14:43 14:43 WBC 4.7 (3.5-10.8) 10^3/uL RBC 4.57 (3.70-4.87) 10^6 /uL Hgb 13.7 (12.0-16.0) g/dL Hct 42 H (33-41) % MCV 91 (80-97) fL MCH 30 (27-31) pg MCHC 33 (31-36) g/dL RDW 14 (10.5-15) % Plt Count 203 (150-450) 10^3/uL MPV 7.0 L (7.4-10.4) fL Neut % (Auto) 69.5 % Lymph % (Auto) 22.1 % Appling % (Auto) 6.9 % Eos % (Auto) 1.1 % Baso % (Auto) 0.4 % Absolute Neuts (auto) 3.3 (1.5-7.7) 10^3/ul Absolute Lymphs (auto) 1.0 (1.0-4.8) 10^3/ul Absolute Monos (auto) 0.3 (0-0.8) 10^3/ul Absolute Eos (auto) 0.1 (0-0.6) 10^3/ul Absolute Basos (auto) 0 (0-0.2) 10^3/ul Absolute Nucleated RBC 0 10^3/ul Nucleated RBC % 0 Sodium 140 (135-145) mmol/L Potassium 4.1 (3.5-5.0) mmol/L Chloride 105 (101-111) mmol/L Carbon Dioxide 30 (22-32) mmol/L Anion Gap 5 (2-11) mmol/L BUN 17 (6-24) mg/dL Creatinine 0.69 (0.51-0.95) mg/dL Est GFR ( Amer) 100.6 (>60) Est GFR (Non-Af Amer) 83.2 (>60) BUN/Creatinine Ratio 24.6 H (8-20) Glucose 107 H (70-100) mg/dL Lactic Acid 0.5 (0.5-2.0) mmol/L Calcium 9.3 (8.6-10.3) mg/dL Total Bilirubin 0.30 (0.2-1.0) mg/dL AST 20 (13-39) U/L ALT 22 (7-52) U/L Alkaline Phosphatase 63 (34-104) U/L Troponin I 0.00 (<0.04) ng/mL Total Protein 6.6 (6.4-8.9) g/dL Albumin 4.1 (3.2-5.2) g/dL Globulin 2.5 (2-4) g/dL Albumin/Globulin Ratio 1.6 (1-3) Result Diagrams: 10/13/18 06:26 10/13/18 06:26 Lab Statement: Any lab studies that have been ordered have been reviewed, and results considered in the medical decision making process. - EKG 1304 Cardiac Rate: NL - 69bpm EKG Rhythm: Sinus Rhythm ST Segment: Normal Ectopy: None Summary of EKG Findings: LVH. No STEMI. Chest Pain Course/Dx - Course Course Of Treatment: Pt is a 72 y/o F presenting to the ED with a chief complaint of chest pain onset about two days ago that comes and goes. She reports weakness, ache in L arm that feels like a pinched nerve, and feeling off balance. The sx lasted a short time but she felt very unwell afterwards, and she reports a recent stressor of having to put her cat down. Her sx today resolved after about one hour. Pt denies any fever, chills, erythema of eyes, sore throat, CP, SOB, cough, abdominal pain, N/V, dysuria, hematuria, edema, or rash. An EKG at 1304 shows NSR 69bpm with LVH but no STEMI. - Diagnoses Provider Diagnoses: Chest pain Discharge - Sign-Out/Discharge Documenting (check all that apply): Patient Departure - Discharge Plan Condition: Good Disposition: ADMITTED TO [facility] - Billing Disposition and Condition Condition: GOOD Disposition: Admitted to [facility] - Attestation Statements Document Initiated by Scribe: Yes Documenting Scribe: Daksha Mendoza Provider For Whom Scribe is Documenting (Include Credential): Darrell Patino MD. Scribe Attestation: IDaksha, scribed for Darrell Patino MD. on 10/15/18 at 1108. Scribe Documentation Reviewed: Yes Provider Attestation: The documentation as recorded by the scribe, Daksha Mendoza accurately reflects the service I personally performed and the decisions made by me, Darrell Patino MD. Status of Scribe Document: Viewed
[2018-10-12] MEDS ORDERED: Metoprolol Tartrate TAB* 50 mg PO ONE (16:53)
[2018-10-12] MEDS ORDERED: hydrALAZINE IV* 20 MG/ML VIAL IV SLOW PU PRN (17:44)
[2018-10-12] MEDS ORDERED: Atorvastatin* 20 MG TAB PO SCH (18:00)
--- NOTE | 2018-10-12 19:55 | HP ---
ADMITTING HISTORY AND PHYSICAL: DATE OF ADMISSION: 10/12/18 CHIEF COMPLAINT: Left arm pain as well as bilateral weakness of lower extremities. HISTORY OF PRESENT ILLNESS: The patient is a 72-year-old lady with history of hypertension, hypercholesterolemia, and hypothyroidism who mentions that she was in her usual state of health until about 2 weeks prior to admission , when she started having some nausea, vomiting, and diarrhea. She mentions that she got better after about 4 or 5 days. However, she did mention that she had a onetime episode when she was going to the grocery store that she felt that her legs were about to "give out." Three days prior to admission, she mentions that she had been very stressed and had to put her cat to sleep due to an unknown tumor that was causing it to suffer. This caused her to worry about her cat and she was anxious about what she had to do, and when she measured her blood pressure, she found that it was more elevated than normal. This morning, she once again felt her legs about to give out and they were very weak, and when she measured her blood pressure with her home BP machine, it read 144/120 and a few minutes later, she felt some pain in her left arm and her son advised her to go to the ER for evaluation and hence, her subsequent admission for hypertensive urgency. In the ED, she was given aspirin 324 mg p.o. x1, metoprolol tartrate 50 mg p.o. x1 as well as nitroglycerin 0.4 mg sublingual. PAST MEDICAL AND SURGICAL HISTORY: 1. Hypertension. 2. Hypercholesterolemia. 3. Hypothyroidism. 4. GERD. 5. Glaucoma. 6. Status post left total knee replacement in 2008. 7. Tonsillectomy. 8. Breast lumpectomy. 9. Status post tubal ligation. HOME MEDICATIONS: None. ALLERGIES: IBUPROFEN, which causes her to get edematous and she is also allergic to GENERIC PROTONIX. SOCIAL HISTORY: She is a nonsmoker, although might have smoked for a period of a year socially when she was in college and she is an occasional alcohol beverage drinker and only socially, maybe once or twice at most a week. She denies any history of IV drug use, alcohol abuse. FAMILY HISTORY: Breast cancer, her mother. Heart arrhythmia, her father, possibly AFib. REVIEW OF SYSTEMS: She completely denies that she has had any chest pain, but mentions it is more about her bilateral lower extremities being weak and left arm pain, but specifically denies chest pain preceding the left arm pain. She denied any recent headaches, dizziness, fevers, chills, nausea, vomiting, chest pain, shortness of breath, abdominal pain, diarrhea, constipation, pain and/or increased frequency on urination, throat pain, or new skin lesions. The rest of the 14-point review of systems other than what was already described are, otherwise, unremarkable. PHYSICAL EXAMINATION GENERAL APPEARANCE: The patient is awake, alert, and oriented x3, not in acute distress. VITAL SIGNS: Show the most vital signs of records with blood pressure of 180/ 89 from 191/103, from 179/111, 64 beats per minute heart rate, 12 per minute respiratory rate, saturating at 98% room air. HEENT: Normocephalic, atraumatic. PERRLA. Extraocular muscles intact. Negative for icterus. Moist oral mucosa. Negative throat erythema. NECK: Soft, supple with no cervical lymphadenopathy. No JVD. CHEST: Clear to auscultation bilaterally. Good air entry. No wheezes, rales, and rhonchi. HEART: S1, S2 within normal limits. Regular rate and rhythm. No murmurs, rubs , or gallops. ABDOMEN: Soft, nondistended, nontender. Normoactive bowel sounds x4 q. EXTREMITIES: No cyanosis, clubbing, or edema. PSYCHIATRIC: No active psychosis, depression, suicidal or homicidal ideations. SKIN: Warm to touch. DIAGNOSTIC STUDIES/LAB DATA: The most recent and pertinent laboratories drawn show CBC with a normal WBC, H and H, and platelet count. Sodium, potassium, BUN , and creatinine were all found to be normal. Lactic acid as well as troponin x2 have been normal. LFTs were found to be normal. EKG shows normal sinus rhythm, 69 beats per minute with no ST-segment changes. ASSESSMENT AND PLAN: As follows: The patient is a 72-year-old lady with history of hypertension, hypercholesterolemia, and hypothyroidism admitted for hypertensive urgency. 1. Hypertensive urgency, likely possibly causing left arm pain, which could be a form of angina, especially given she is an elderly female. Her GERRY score is only 1, however, and hence, at low risk. Being this is Monday afternoon and tomorrow will be Monday, we will not have an availability for a stress test and hence, if she rules out for acute coronary syndrome, she can have this as an outpatient given she is low risk. We will also order a d-dimer to rule out for pulmonary embolism, although she does not complain of any chest pain or shortness of breath. However, this was the impression that the ER physician thought might be part of her complaint. We will continue Lasix. We will place the patient on p.r.n. hydralazine. I will add amlodipine to her regimen and we will continue her metoprolol and will continue watchful waiting. 2. Hypothyroidism. We will check TSH and we will continue current Synthroid dose. 3. Hyperlipidemia. Continue atorvastatin and we will check fasting lipid levels in the a.m. 4. Peripheral edema. She mentions that she is on Lasix for peripheral edema alone and has had no history of congestive heart failure; however, we will continue her diuretics for her uncontrolled hypertension as described above. 5. DVT prophylaxis. She is a low risk and a very active person and I have encouraged the patient to ambulate. 6. Disposition. As above, for possible discharge in a.m. [id number]/[facility] #: [id number] ARACELIS
[2018-10-13 02:36] LABS: Troponin I 0.01 ng/mL (<0.04)
[2018-10-13 03:04] LABS: TSH (Thyroid Stimulating Horm) 2.02 mcIU/mL (0.34-5.60)
[2018-10-13] MEDS ORDERED: Levothyroxine TAB* 25 MCG TAB PO SCH (06:00)
[2018-10-13 06:55] LABS: Hematocrit 39 % (33-41); Mean Corpuscular HGB Conc 33 g/dL (31-36); Mean Corpuscular Hemoglobin 30 pg (27-31); Mean Corpuscular Volume 90 fL (80-97); Platelet Count 191 10^3/uL (150-450); Red Blood Count 4.32 10^6 /uL (3.70-4.87); Red Cell Distribution Width 14 % (10.5-15); White Blood Count 4.1 10^3/uL (3.5-10.8)
[2018-10-13 07:16] LABS: Albumin 3.7 g/dL (3.2-5.2); Albumin/Globulin Ratio 1.7 (1-3); BUN/Creatinine Ratio 22.6 (8-20); Calcium 9.1 mg/dL (8.6-10.3); EGFR African American 113.9 (>60); EGFR Non-African American 94.1 (>60); Globulin 2.2 g/dL (2-4); HDL Cholesterol 43.5 mg/dL; Magnesium 2.1 mg/dL (1.9-2.7); Phosphorus 3.6 mg/dL (2.5-5.0); Total Bilirubin 0.6 mg/dL (0.2-1.0); Total Protein 5.9 g/dL (6.4-8.9)
[2018-10-13] MEDS ORDERED: amLODIPine TAB* 5 MG PO SCH (09:00)
[2018-10-13] MEDS ORDERED: Furosemide TAB* 20 MG PO SCH (09:00)
[2018-10-13] MEDS ORDERED: Pantoprazole TAB * 40 MG TAB PO SCH (09:00)
[2018-10-13] MEDS ORDERED: Metoprolol Tartrate TAB* 100 MG TAB PO SCH (09:00)
[2018-10-13 09:56] VITALS: BP 126/67
--- NOTE | 2018-10-14 00:56 | DS ---
CC: Dr. Damaso Hightower * DISCHARGE SUMMARY: DATE OF ADMISSION: 10/12/18 DATE OF DISCHARGE: 10/13/18 PRIMARY CARE PROVIDER: Dr. Damaso Hightower. ATTENDING PHYSICIAN: Dr. Michele Ibarra * (dictated by Nella Aponte NP). PRIMARY DIAGNOSES: 1. Hypertensive urgency. 2. Left arm pain, musculoskeletal. SECONDARY DIAGNOSES: 1. Hyperlipidemia. 2. Hypothyroidism. 3. Peripheral edema. STUDIES WHILE IN THE HOSPITAL: EKG on 10/12/18 showed normal sinus rhythm at the rate of 69, QTc 432, no ischemic changes. HISTORY OF PRESENT ILLNESS AND HOSPITAL COURSE: Ms. Wallace is a 72-year-old female with past medical history of hypertension, hyperlipidemia, hypothyroidism , and peripheral edema who presented to the emergency room on 10/12/18 with complaints of left arm pain and lower extremity weakness. Please see the history and physical by Dr. Ibarra for complete summary of the events leading up to this hospitalization. In short, the patient, reported that she had been in her usual state of health, though within the last week had some nausea, vomiting, and diarrhea. She did have some periods of weakness, though did not suffer any falls or injuries. She did reportedly put her cat down earlier in the week and this was quite stressful for her. She does take her blood pressures at home and reports that she has seen some higher than normal readings. In the emergency room, the patient was noted to have blood pressure up to 191/103. Because of the concern for hypertensive urgency and her accompanied left arm pain, she was admitted by the hospitalist service. The patient had uneventful night. She was started on 10 mg of amlodipine and as of today her systolic blood pressures have been in the 120s to 140s. The patient reports she has not had any further arm pain. She does reports that she has had this left arm pain frequently on and off for the last few years and feels as though it occurs when she sleeps on it wrong. Her lower extremity weakness resolved with her hypertension. She does admit to me that she has been quite stressed in the last week due to the loss of her cat. She does check her blood pressure at home approximately 3 times a day and keeps a log of this. On exam today, she is in no acute distress. She has had no arrhythmias on telemetry and she has remained on normal sinus rhythm. Again, vital signs have been stable and blood pressures have been normotensive. I did have a long conversation with the patient about blood pressure management including medication, diet, exercise, and home monitoring. She does have a good understanding of this diagnoses. Ms. Wallace is stable for discharge today. Vital signs are as follows. Temperature 97.2, heart rate 56, respiratory rate 18, oxygen saturation 97% on room air, blood pressure 126/67. DISCHARGE MEDICATIONS: New medications: 1. Amlodipine 10 mg p.o. daily. Continued medications: 1. Ascorbic acid 250 mg p.o. daily. 2. Atorvastatin 20 mg p.o. daily. 3. Calcium 600 plus vitamin D, 1 tab p.o. t.i.d. 4. Furosemide 20 mg p.o. daily. 5. Levothyroxine 25 mcg p.o. daily. 6. Magnesium oxide 250 mg p.o. daily. 7. Metoprolol tartrate 100 mg p.o. daily. 8. Pantoprazole 40 mg p.o. daily. 9. Vitamin E 200 mg p.o. daily. DISCHARGE PLAN: Ms. Wallace will be discharged home. Activity will be as tolerated. She has reported that she is quite active and walks approximately 2 miles per day and she has been encouraged to continue this as long as she is feeling strong enough to do so. Diet should be heart healthy, low sodium, low fat. Again, I did have a long discussion with her about this and she has a good understanding of her diet limitations. Medications are noted above. Again, the patient has been started on amlodipine, which she responded well to. I have sent a new 30-day supply of this and she will need to follow up with her primary care provider to determine further medication management. I have advised her to continue checking her blood pressure at least daily though she reports checking it 3 times a day. I did advise her to hold her amlodipine if her blood pressure is less than 100/60. Additionally, I have advised her that she will likely benefit from having an outpatient stress test. Again, her left arm pain was not cardiac in nature, although she does score 1 on the GERRY scale and would certainly benefit from a stress test. She will need to follow up with her primary care provider in 4 to 7 days. She has been advised to return to the emergency room or nearest hospital for any worsening of symptoms, shortness of breath, lightheadedness, dizziness, chest discomfort, high fevers, chills, night sweats, loss of consciousness or any other worrisome signs or symptoms. DISCHARGE DISPOSITION: Home. DISCHARGE CONDITION: Good. This is a summarized report of a complex medical history and hospital stay. For further details, please see the entire medical record. TIME SPENT: Approximately 45 minutes were spent on this discharge. NELLA APONTE NP [id number]/[facility] #: [id number] ARACELIS
== END 2018-10-13 12:21 | disposition home or self-care (01) ==
LOC: ED 12:53 → MEDTELE 17:26
PROVIDERS: ADMIT Student in an Organized Health Care Education/Training Program; ATTEND Student in an Organized Health Care Education/Training Program
DX: I16.0 Hypertensive urgency (principal); M79.602 Pain in left arm; E78.5 Hyperlipidemia, unspecified; E03.9 Hypothyroidism, unspecified; R60.0 Localized edema; R42 Dizziness and giddiness; E78.00 Pure hypercholesterolemia, unspecified; R07.9 Chest pain, unspecified; R53.1 Weakness; K21.9 Gastro-esophageal reflux disease without esophagitis; Z96.652 Presence of left artificial knee joint; Z90.12 Acquired absence of left breast and nipple; Z98.51 Tubal ligation status; Z88.6 Allergy status to analgesic agent; Z87.442 Personal history of urinary calculi; Z86.79 Personal history of other diseases of the circulatory system
CPT/HCPCS: 36415; 80053; 80061; 83605; 83735; 84100; 84443; 84484; 85025; 85027; 85379; 93005; 96374; 99283; A9270-GY; G0378

== ENCOUNTER 2019-07-16 19:10 | Emergency (ER) | payer MEDICARE ==
[2019-07-16 19:47] LABS: ABS Eosinophils 0.1 10^3/ul (0-0.6); ABS Lymphocytes 1.6 10^3/ul (1.0-4.8); ABS Monocytes 0.4 10^3/ul (0-0.8); ABS Neutrophils 2.8 10^3/ul (1.5-7.7); Eosinophil % 1.7 %; Hematocrit 42 % (35-47); Mean Corpuscular HGB Conc 34 g/dL (31-36); Mean Corpuscular Hemoglobin 31 pg (27-31); Mean Corpuscular Volume 92 fL (80-97); Mean Platelet Volume 6.9 fL (7.4-10.4); Nucleated Red Blood Cells % 0.2; Platelet Count 186 10^3/uL (150-450); Red Blood Count 4.54 10^6 /uL (3.70-4.87); Red Cell Distribution Width 15 % (10-15)
--- NOTE | 2019-07-16 20:00 | ED ---
Headache - HPI Summary HPI Summary: Pt is a 73 y/o F presenting to the ED with a chief complaint of a headache. She states she was driving yesterday at 3 PM when she experienced sudden onset pain through the top of her head described as sharp, and accompanied by loud tinnitus. This episode lasted about 1-2 minutes, and when she returned home she noticed she was somewhat weak. Since that time she has had pressure in her head behind her left eye and left ear. She noted visual changes described as a haze in her L eye. She does not have blindness in the eye. Does not report a visual field defect. She states when looking at the TV the numbers for the channel or blue. If she covers her right eye she states that the letters seem vague. Not blue. She also notes some pain in her L wrist. She notes shes had some URI symptoms over the past couple of days including some sinus pressure, fatigue, chills, and congestion. She denies n/v/d, abd pain, CP, SOB, or current headache. - History Of Current Complaint Chief Complaint: EDEyeProblem Stated Complaint: PRESSURE BEHIND LT EYE PER PT Time Seen by Provider: 07/16/19 19:39 Hx Obtained From: Patient Onset/Duration: Sudden Onset, Started hours ago, Resolved Initially Headache Was: Initial Pain Scale(0-10)= - 10 Currently Pain Is: Current Pain Scale(0-10)= - 0 Timing: Intermittent, Lasting:, Minutes - 1-2 Character: Sharp Location of Headache: Other: - top of head Aggravating Factor: Nothing Allevating Factors: Nothing Associated Signs And Symptoms: Visual Changes - Allergies/Home Medications Allergies/Adverse Reactions: Allergies Allergy/AdvReac Type Severity Reaction Status Date / Time ibuprofen Allergy Severe SEVERE Verified 10/12/18 12:55 SWELLING PMH/Surg Hx/FS Hx/Imm Hx Previously Healthy: Yes Endocrine/Hematology History: Reports: Hx Thyroid Disease Denies: Hx Bone Marrow Disease, Hx Diabetes, Hx Sickle Cell Disease, Hx Anemia Cardiovascular History: Reports: Hx Angina - non-cardiac per pt., Hx Hypercholesterolemia, Hx Hypertension Denies: Hx Congenital Heart Disease, Hx Coronary Artery Disease, Hx Myocardial Infarction, Hx Pacemaker/ICD, Hx Valvular Heart Disease Respiratory History: Reports: Hx Pneumonia, Other Respiratory Problems/ Disorders - pleurisy Denies: Hx Asthma, Hx Chronic Obstructive Pulmonary Disease (COPD) GI History: Reports: Hx Gastroesophageal Reflux Disease, Other GI Disorders - rectiseal, 2010 History: Reports: Hx Kidney Stones - 2006 Denies: Hx Renal Disease Musculoskeletal History: Reports: Hx Arthritis, Other Musculoskeletal History - LEFT KNEE DISCOMFORT Sensory History: Reports: Hx Cataracts, Hx Contacts or Glasses, Hx Glaucoma Denies: Hx Hearing Aid Opthamlomology History: Reports: Hx Cataracts, Hx Contacts or Glasses, Hx Glaucoma Neurological History: Reports: Other Neuro Impairments/Disorders - BILAT CTS Denies: Hx CVA, Hx Transient Ischemic Attacks (TIA) Psychiatric History: Denies: Hx Panic Disorder - Cancer History Hx Chemotherapy: No Hx Radiation Therapy: No - Surgical History Surgery Procedure, Year, and Place: lumpectomy RIGHT BREAST, L KNEE REPLACEMENT. RECTOCELE WITH MESH. TONSILS. TUBAL LIGATION. POLYP REMOVED FROM THROAT-KIDNEY STONES Hx Anesthesia Reactions: Yes - SEVERE HYPOTENSION POST D&C - Immunization History Date of Influenza Vaccine: no Immunizations Up to Date: Yes Infectious Disease History: No Infectious Disease History: Denies: Traveled Outside the [place] in Last 30 Days - Family History Known Family History: Positive: Cardiac Disease - father, Other - CVA, CA in mother - Social History Alcohol Use: Rare Hx Substance Use: No Substance Use Type: Reports: None Hx Tobacco Use: No Smoking Status (MU): Never Smoked Tobacco Have You Smoked in the Last Year: No Review of Systems - ROS Summary Review of Systems Summary: Home Medications Medication Instructions Recorded Confirmed Type Atorvastatin* [Lipitor 20 MG*] 20 mg PO QPM 12/22/12 10/12/18 History Metoprolol Tartrate TAB* 100 mg PO QAM 12/22/12 10/12/18 History [Lopressor TAB*] Pantoprazole TAB * [Protonix TAB*] 40 mg PO DAILY #0 11/12/16 10/12/18 History Ascorbic Acid TAB* [Vitamin C 250 mg PO DAILY 10/12/18 10/12/18 History TAB*] Calcium Carbonate/Vitamin D3 1 tab PO TID 10/12/18 10/12/18 History [Calcium 600 + Vit D Tablet] Furosemide TAB* [Lasix TAB*] 20 mg PO QAM 10/12/18 10/12/18 History Levothyroxine TAB* [Synthroid 25 25 mcg PO DAILY 10/12/18 10/12/18 History MCG TAB*] Magnesium Oxide [Magnesium] 250 mg PO DAILY 10/12/18 10/12/18 History Vitamin E CAP* 200 unit PO DAILY 10/12/18 10/12/18 History amLODIPine TAB* [Norvasc 5 mg TAB*] 10 mg PO DAILY #60 tab 10/13/18 Rx Positive: Chills, Fatigue Positive: Other - haze in L eye, L eye pain Positive: Ear Ache - left, Other - sinus pressure, tinnitus, nasal congestion Negative: Chest Pain Negative: Shortness Of Breath Negative: Abdominal Pain, Vomiting, Diarrhea, Nausea Positive: Arthralgia - L wrist Positive: Headache, Weakness All Other Systems Reviewed And Are Negative: Yes Physical Exam - Summary Physical Exam Summary: General: Well-developed, Well-nourished female. No acute distress. HEENT: Normocephalic, Atraumatic. Eyes: PERRL, EOMI, superficial hemorrhage in L lateral eye conjunctiva, iris and pupil are spared; fundoscopic exam with no papilledema, anterior chamber negative bulging, on fluorescein exam no take up. Visual sarabia are normal. Oropharynx: Clear, mucous membranes moist, (-) exudates. Neck: Soft, FROM, (-) lymphadenopathy, (-) thyromegaly, (-) JVD. Cardiovascular: Normal sinus rhythm, (-) murmur. Lungs: Clear to auscultation bilaterally (-) wheezes, (-) rales, (-) rhonchi. Abdomen: Soft, non-tender, non-distended, (-) organomegaly, normal bowel sounds. Back: (-) CVA tenderness Extremities: No edema. Skin: Warm, dry, (-) rash. Neuro: Alert and oriented x3, no focal deficits. Psychiatric: Mood normal, affect normal. Triage Information Reviewed: Yes Vital Signs On Initial Exam: Initial Vitals Temp Pulse Resp BP Pulse Ox 98.2 F 76 18 206/113 99 07/16/19 19:18 07/16/19 19:18 07/16/19 19:18 07/16/19 19:18 07/16/19 19:18 Vital Signs Reviewed: Yes - Leola Coma Scale Best Eye Response: 4 - Spontaneous Best Motor Response: 6 - Obeys Commands Best Verbal Response: 5 - Oriented Coma Scale Total: 15 Procedures - Sedation Patient Received Moderate/Deep Sedation with Procedure: No Diagnostics - Vital Signs Vital Signs Temp Pulse Resp BP Pulse Ox 07/16/19 19:18 98.2 F 76 18 206/113 99 - Laboratory Lab Results: Lab Results 07/16/19 Range/Units 19:39 WBC 5.0 (3.5-10.8) 10^3/uL RBC 4.54 (3.70-4.87) 10^6 /uL Hgb 14.0 (12.0-16.0) g/dL Hct 42 (35-47) % MCV 92 (80-97) fL MCH 31 (27-31) pg MCHC 34 (31-36) g/dL RDW 15 (10-15) % Plt Count 186 (150-450) 10^3/uL MPV 6.9 L (7.4-10.4) fL Neut % (Auto) 56.6 % Lymph % (Auto) 33.0 % Gooding % (Auto) 8.3 % Eos % (Auto) 1.7 % Baso % (Auto) 0.4 % Absolute Neuts (auto) 2.8 (1.5-7.7) 10^3/ul Absolute Lymphs (auto) 1.6 (1.0-4.8) 10^3/ul Absolute Monos (auto) 0.4 (0-0.8) 10^3/ul Absolute Eos (auto) 0.1 (0-0.6) 10^3/ul Absolute Basos (auto) 0.0 (0-0.2) 10^3/ul Absolute Nucleated RBC 0.0 10^3/ul Nucleated RBC % 0.2 ESR Pending Result Diagrams: 07/16/19 19:39 07/16/19 19:39 Lab Statement: Any lab studies that have been ordered have been reviewed, and results considered in the medical decision making process. - CT Brain CT CT Interpretation Completed By: Radiologist Summary of CT Findings: No acute intracranial abnormality. ED physician has reviewed this report. - EKG 2007 Cardiac Rate: NL - 60bpm EKG Rhythm: Sinus Rhythm ST Segment: Normal Ectopy: None Summary of EKG Findings: EKG at 2007 reveals normal sinus rhythm with rate of 60 BPM, no acute changes, no ischemic changes. This EKG was reviewed and interpreted by Dr. Naylor. Re-Evaluation - Re-Evaluation 1st re-eval Re-Evaluation Time: 21:30 Change: Improved Comment: I have discussed results with the patient, her chief complaint has resolved. Discussed symptoms that warrant immediate return to ED. Headache Course/Dx - Course Course Of Treatment: 73-year-old female presents with symptoms over 24 hours ago of change in vision in left eye, pressure in the head and tinnitus. Patient states her family insisted she come and be checked out. She denies any tingling numbness or weakness in her extremities. No change in speech. She does have a history of glaucoma. Left eye. Has drops for this. Has an car pre cooler. Eye examine is essentially within normal limits bilaterally. No central loss of vision. No visual field defect. No papilledema. Laboratories with no significant abnormality. CT head without acute changes. Discussed at length the patient. Patient would like to go home at this time. She will see her car pre cooler on . If she is not able to get him she will return here. She should return sooner for any worsening symptoms. - Diagnoses Provider Diagnoses: Visual changes Discharge ED - Sign-Out/Discharge Documenting (check all that apply): Patient Departure - Discharge Plan Condition: Stable Disposition: HOME Referrals: Damaso Hightower MD [Primary Care Provider] - Additional Instructions: Please follow up with your car pre cooler this morning, 07/18/18. Please return to ED for any new or worsening symptoms. - Billing Disposition and Condition Condition: STABLE Disposition: Home - Attestation Statements Document Initiated by Robert: Yes Documenting Scribe: Daksha Mendoza Provider For Whom Robert is Documenting (Include Credential): Tracey Naylor MD. Scribe Attestation: Daksha Bond, scribed for Tracey Naylor MD. on 07/16/19 at 2256. Scribe Documentation Reviewed: Yes Provider Attestation: The documentation as recorded by the Daksha polanco accurately reflects the service I personally performed and the decisions made by me, Tracey Naylor MD. Status of Scribe Document: Viewed
[2019-07-16 20:03] LABS: Albumin 4.5 g/dL (3.2-5.2); Albumin/Globulin Ratio 1.7 (1-3); BUN/Creatinine Ratio 26.8 (8-20); Calcium 9.3 mg/dL (8.6-10.3); EGFR African American 97.1 (>60); EGFR Non-African American 80.3 (>60); Globulin 2.6 g/dL (2-4); Potassium 3.8 mmol/L (3.5-5.0); Total Bilirubin 0.3 mg/dL (0.2-1.0); Total Protein 7.1 g/dL (6.4-8.9)
[2019-07-16 20:58] LABS: Erythrocyte Sed Rate 11 mm/Hr (0-29)
[2019-07-16 21:32] VITALS: BP 185/87
== END 2019-07-16 21:30 | disposition home or self-care (01) ==
LOC: ED 19:10
DX: H53.9 Unspecified visual disturbance (principal); E07.9 Disorder of thyroid, unspecified; I10 Essential (primary) hypertension; E78.00 Pure hypercholesterolemia, unspecified; K21.9 Gastro-esophageal reflux disease without esophagitis; Z96.651 Presence of right artificial knee joint; Z98.51 Tubal ligation status; Z79.890 Hormone replacement therapy; Z79.899 Other long term (current) drug therapy; Z88.8 Allergy status to other drugs, medicaments and biological substances
CPT/HCPCS: 36415; 70450; 80053; 84484; 85025; 85652; 93005; 99283

== ENCOUNTER 2022-03-10 08:21 | Inpatient (IN) ==
[~2022-03-10 08:21] MED LIST changes: -Acetaminophen TAB* 325 MG PO PRN; -Buffered Lidocaine 0.9% SYRIN* 5 ML/SYR SYRINGE INTRADERM ONE; +Buffered Lidocaine 1% SYRIN 1 ml INTRADERM ONE; +Lactated Ringers 1000 ml BAG 1,000 ML IV SCH
[2022-03-10] MEDS ORDERED: Buffered Lidocaine 1% SYRIN 1 ml INTRADERM ONE (08:54)
[2022-03-10] MEDS ORDERED: ceFAZolin 2 GM in NS PREMIX 2 GM/100 ML BAG IVPB ONE (08:54)
[2022-03-10] MEDS ORDERED: Midazolam 2 mg/2 ml VIAL 1 mg/ml 2 ml VIAL (2 mg) ONE (09:10)
[2022-03-10] MEDS ORDERED: Lidocaine 2% PF 5 ML VIAL ONE (09:10)
[2022-03-10] MEDS ORDERED: fentaNYL 100 mcg/2 ml 50 MCG/ML VIAL ONE ×2 (09:10→15:14)
[2022-03-10] MEDS ORDERED: Phenylephrine IV 10 MG/ML 1 ml VIAL ONE (09:17)
[2022-03-10] MEDS ORDERED: Propofol 10 MG/ML 20 ML BTL ONE ×2 (10:40→12:36)
[2022-03-10] MEDS ORDERED: fentaNYL 100 mcg/2 ml 50 MCG/ML VIAL IV PRN (10:55)
[2022-03-10] MEDS ORDERED: Naloxone 0.4 mg VIAL 0.4 mg/ml 1 ml VIAL IV PRN (10:55)
[2022-03-10] MEDS ORDERED: Ondansetron 4 mg VIAL 2 MG/ML 2 ml VIAL IV PRN ×2 (10:55→13:50)
[2022-03-10] MEDS ORDERED: Ondansetron 4 mg VIAL 2 MG/ML 2 ml VIAL ONE (12:04)
[2022-03-10] MEDS ORDERED: Dexamethasone IV 4 MG/ML VIAL 1 ml VIAL ONE (12:04)
[2022-03-10] MEDS ORDERED: Glycopyrrolate IV 0.2 MG/ML 1 ML VIAL ONE ×2 (12:12→12:22)
[2022-03-10] MEDS ORDERED: Morphine 2 MG/ML SYRINGE IV PRN (13:50)
[2022-03-10] MEDS ORDERED: Magnesium Hydroxide LIQ 30 ML UDC PO PRN (13:50)
[2022-03-10] MEDS ORDERED: Lactulose 30 ml UDC PO PRN (13:50)
[2022-03-10] MEDS ORDERED: Ondansetron ODT 4 mg TAB 4 MG TAB PO PRN (13:50)
[2022-03-10] MEDS: Lactated Ringers 1000 ml BAG 1,000 ML IV SCH ×2 (16:19→19:00)
[2022-03-10] MEDS: ceFAZolin 1 GM ADVAN 1 GM in NS 0.9% 50 ML 50 ML IVPB SCH (20:55)
[2022-03-10] MEDS: Magnesium Hydroxide LIQ 30 ML UDC PO SCH (21:04)
[2022-03-11] MEDS: ceFAZolin 1 GM ADVAN 1 GM in NS 0.9% 50 ML 50 ML IVPB SCH ×2 (03:19→11:15)
[2022-03-11 05:52] LABS: Hematocrit 32 % (35-47); Hemoglobin 10.5 g/dL (12.0-16.0); Mean Platelet Volume 7.1 fL (7.4-10.4); Platelet Count 144 10^3/uL (150-450)
[2022-03-11 06:26] LABS: Calcium 8.2 mg/dL (8.6-10.3); Potassium 4.2 mmol/L (3.5-5.0); eGFR CKD-EPI 89.7 (>60)
[2022-03-11] MEDS ORDERED: Vitamin THERAPEUTIC TAB PO SCH (09:00)
[2022-03-11] MEDS ORDERED: Calcium/Vitamin D TAB 250/125 TAB PO SCH (09:00)
[2022-03-11] MEDS: Magnesium Hydroxide LIQ 30 ML UDC PO SCH (09:23)
[2022-03-11 11:21] VITALS: BP 130/65
== END 2022-03-11 13:00 | disposition home or self-care (01) | DRG 470 ==
LOC: AA 08:21 → SSU 16:19
PROVIDERS: ADMIT Orthopaedic Surgery Adult Reconstructive Orthopaedic Surgery; ATTEND Orthopaedic Surgery Adult Reconstructive Orthopaedic Surgery

== ENCOUNTER 2022-08-16 06:21 | Inpatient (IN) ==
[2022-08-16] MEDS ORDERED: ceFAZolin 2 GM PREMIX 2 GM/50 ML BAG ONE (06:59)
[2022-08-16] MEDS ORDERED: fentaNYL 100 mcg/2 ml 50 MCG/ML VIAL ONE (08:25)
[2022-08-16] MEDS ORDERED: Midazolam 2 mg/2 ml VIAL 1 mg/ml 2 ml VIAL (2 mg) ONE ×2 (08:26→09:20)
[2022-08-16] MEDS ORDERED: ROPIVACAINE 5 MG/ML 30 ML BTL (0.5%) ONE (08:26)
[2022-08-16] MEDS ORDERED: Ropivacaine 5 MG/ML 20 ML VIAL 0.5% (100 MG) ONE (08:58)
[2022-08-16] MEDS ORDERED: fentaNYL 100 mcg/2 ml 50 MCG/ML VIAL IV PRN (10:14)
[2022-08-16] MEDS ORDERED: Naloxone 0.4 mg VIAL 0.4 mg/ml 1 ml VIAL IV PRN (10:14)
[2022-08-16] MEDS ORDERED: Ondansetron 4 mg VIAL 2 MG/ML 2 ml VIAL IV PRN ×2 (10:14→10:20)
[2022-08-16] MEDS ORDERED: Prochlorperazine 5 mg/ml 2 ml VIAL (10 mg) IV PRN (10:14)
[2022-08-16] MEDS ORDERED: Morphine 2 MG/ML SYRINGE IV PRN (10:20)
[2022-08-16] MEDS ORDERED: Lactulose 30 ml UDC PO PRN (10:20)
[2022-08-16] MEDS ORDERED: Ondansetron ODT 4 mg TAB 4 MG TAB PO PRN (10:20)
[2022-08-16] MEDS ORDERED: Magnesium Hydroxide LIQ 30 ML UDC PO PRN (10:20)
[2022-08-16] MEDS ORDERED: Propofol 10 MG/ML 20 ML BTL ONE (11:05)
[2022-08-16] MEDS: Lactated Ringers 1000 ml BAG 1,000 ML IV SCH (14:16)
[2022-08-16] MEDS ORDERED: Morphine 2 MG/ML SYRINGE ONE (14:32)
[2022-08-16] MEDS: ceFAZolin 1 GM ADVAN 1 GM in NS 0.9% 50 ML 50 ML IVPB SCH (17:16)
[2022-08-16] MEDS: Magnesium Hydroxide LIQ 30 ML UDC PO SCH (21:22)
[2022-08-17] MEDS: Lactated Ringers 1000 ml BAG 1,000 ML IV SCH (00:48)
[2022-08-17] MEDS: ceFAZolin 1 GM ADVAN 1 GM in NS 0.9% 50 ML 50 ML IVPB SCH ×2 (01:43→09:35)
[2022-08-17 06:13] LABS: Hematocrit 28 % (35-47); Hemoglobin 9.1 g/dL (12.0-16.0); Platelet Count 136 10^3/uL (150-450)
[2022-08-17 06:43] LABS: Calcium 7.9 mg/dL (8.6-10.3); Creatinine, Serum 0.46 mg/dL (0.51-0.95); Potassium 4.1 mmol/L (3.5-5.0); eGFR CKD-EPI 97.9 (>60)
[2022-08-17] MEDS: Magnesium Hydroxide LIQ 30 ML UDC PO SCH (08:35)
[2022-08-17] MEDS ORDERED: Vitamin THERAPEUTIC TAB PO SCH (09:00)
[2022-08-17 11:14] VITALS: BP 156/78
== END 2022-08-17 12:10 | disposition home or self-care (01) | DRG 470 ==
LOC: AA 06:21 → INTOOBSV 06:21 → SSU 10:25
PROVIDERS: ADMIT Orthopaedic Surgery Adult Reconstructive Orthopaedic Surgery; ATTEND Orthopaedic Surgery Adult Reconstructive Orthopaedic Surgery